=== PATIENT | female | born 1995 | race American Indian/Alaskan Native ===

== ENCOUNTER 2018-12-26 12:02 | Emergency (ER) | payer MEDICAID ==
--- NOTE | 2018-12-26 12:10 | Emergency Department Report ---
Blank Doc - Documentation Documentation: This is a 23-year-old female that presents with sore throat. This initial assessment/diagnostic orders/clinical plan/treatment(s) is/are subject to change based on patient's health status, clinical progression and re- assessment by fellow clinical providers in the ED. Further treatment and workup at subsequent clinical providers discretion. Patient/guardians urged not to elope from the ED as their condition may be serious if not clinically assessed and managed. Initial orders include: 1- Patient sent to [facility] for further evaluation and treatment 2- strep swab
[2018-12-26 12:11] VITALS: BP 106/63
[2018-12-26] MEDS ORDERED: MOTRIN PO ONE (12:38)
[2018-12-26] MEDS ORDERED: BICILLIN L-A IM ONE (12:48)
--- NOTE | 2018-12-26 13:36 | Emergency Department Report ---
ED ENT HPI - General Chief complaint: Sore Throat Stated complaint: SORE THROAT/PAIN Time Seen by Provider: 12/26/18 12:09 Source: patient Mode of arrival: Ambulatory Limitations: No Limitations - History of Present Illness Initial comments: 23-year-old female presents to the Hospital complaining of sore throat 3 days. No fever reported. Also associated frontal headache and earache. She complains of pain with swallowing but is able to swallow secretions without drooling or respiratory distress. - Related Data Previous Rx's Medication Instructions Recorded Last Taken Type Ibuprofen [Motrin] 800 mg PO Q8HR PRN #15 tablet 02/24/16 Unknown Rx Penicillin Vk [Veetids TAB] 500 mg PO Q8H #30 tablet 02/24/16 Unknown Rx Benzocaine/Mentho [Cepacol X 1 each MM Q2HR PRN #20 gunner 12/26/18 Unknown Rx Strength] Ibuprofen Oral Liqd [Motrin] 800 mg PO TID PRN #20 dose 12/26/18 Unknown Rx Allergies Allergy/AdvReac Type Severity Reaction Status Date / Time No Known Allergies Allergy Unverified 02/24/16 13:10 ED Dental HPI - General Chief complaint: Sore Throat Stated complaint: SORE THROAT/PAIN Time Seen by Provider: 12/26/18 12:09 Source: patient Mode of arrival: Ambulatory Limitations: No Limitations - Related Data Previous Rx's Medication Instructions Recorded Last Taken Type Ibuprofen [Motrin] 800 mg PO Q8HR PRN #15 tablet 02/24/16 Unknown Rx Penicillin Vk [Veetids TAB] 500 mg PO Q8H #30 tablet 02/24/16 Unknown Rx Benzocaine/Mentho [Cepacol X 1 each MM Q2HR PRN #20 gunner 12/26/18 Unknown Rx Strength] Ibuprofen Oral Liqd [Motrin] 800 mg PO TID PRN #20 dose 12/26/18 Unknown Rx Allergies Allergy/AdvReac Type Severity Reaction Status Date / Time No Known Allergies Allergy Unverified 02/24/16 13:10 ED Review of Systems ROS: Stated complaint: SORE THROAT/PAIN Other details as noted in HPI Comment: All other systems reviewed and negative ED Past Medical Hx - Past Medical History Previous Medical History?: No - Surgical History Past Surgical History?: No - Social History Smoking Status: Never Smoker Substance Use Type: Marijuana - Medications Home Medications: Home Medications Medication Instructions Recorded Confirmed Last Taken Type Ibuprofen [Motrin] 800 mg PO Q8HR PRN #15 tablet 02/24/16 Unknown Rx Penicillin Vk [Veetids TAB] 500 mg PO Q8H #30 tablet 02/24/16 Unknown Rx Benzocaine/Mentho [Cepacol X 1 each MM Q2HR PRN #20 gunner 12/26/18 Unknown Rx Strength] Ibuprofen Oral Liqd [Motrin] 800 mg PO TID PRN #20 dose 12/26/18 Unknown Rx ED Physical Exam - General Limitations: No Limitations - Other Other exam information: General: No limitations, patient is alert in no acute distress Head exam: Atraumatic, normocephalic Eyes exam: Normal appearance, pupils equal reactive to light, extraocular movements intact ENT: Moist mucous membrane, bilateral pharyngeal exudates with posterior pharyngeal swelling. No kissing tonsils. Uvula midline. Tender cervical lymphadenopathy left greater than right. Neck exam: Normal inspection, full range of motion, no meningismus nontender Respiratory exam: Clear to auscultation bilateral, no wheezes, rales, crackles Cardiovascular: Normal rate and rhythm, normal heart sounds Abdomen: Soft, nondistended, and nontender, with normal bowel sounds, no rebound, or guarding Extremity: Full range of motion normal inspection no deformity Back: Normal Inspection, full range of motion, no tenderness Neurologic: Alert, oriented x3, cranial nerves intact, no motor or sensory deficit Psychiatric: normal affect, normal mood Skin: Warm, dry, intact ED Course Vital Signs 12/26/18 12:09 Temperature 99.9 F H Pulse Rate 102 H Respiratory 16 Rate Blood Pressure 106/63 O2 Sat by Pulse 95 Oximetry ED Medical Decision Making - Medical Decision Making Patient received Bicillin for strep throat as well as by mouth Motrin. - Differential Diagnosis pharyngitis, strep, viral, sinusitis, seasonal allergies Critical care attestation.: If time is entered above; I have spent that time in minutes in the direct care of this critically ill patient, excluding procedure time. ED Disposition Clinical Impression: Strep pharyngitis Disposition: DC- TO HOME OR SELFCARE Is pt being admited?: No Does the pt Need Aspirin: No Condition: Stable Instructions: Strep Throat (ED) Additional Instructions: Take the medication as prescribed. Follow up with your doctor or the clinic/doctor provided. Return if symptoms worsen as indicated by your discharge instructions. You were given a shot of antibiotic for strep throat which will remain in your body for several days and therefore he did not require any antibiotic prescription. Prescriptions: Benzocaine/Mentho [Cepacol X Strength] 1 each MM Q2HR PRN #20 gunner PRN Reason: Sore Throat Ibuprofen Oral Liqd [Motrin] 800 mg PO TID PRN #20 dose PRN Reason: Pain , Severe (7-10) Referrals: STEWART BLACK MD [Primary Care Provider] - 3-5 Days Time of Disposition: 13:36
== END 2018-12-26 13:42 | disposition home or self-care (01) ==
LOC: ED 12:02
DX: J02.0 Streptococcal pharyngitis (principal)
CPT/HCPCS: 87430; 96372; 99283; J0561

== ENCOUNTER 2019-09-14 12:44 | Emergency (ER) | payer MEDICAID ==
--- NOTE | 2019-09-14 13:01 | Emergency Department Report ---
Blank Doc - Documentation Documentation: 24-year-old female that presents with pelvic pain and vaginal discharge. This initial assessment/diagnostic orders/clinical plan/treatment(s) is/are subject to change based on patient's health status, clinical progression and re- assessment by fellow clinical providers in the ED. Further treatment and workup at subsequent clinical providers discretion. Patient/guardians urged not to elope from the ED as their condition may be serious if not clinically assessed and managed. Initial orders include: 1- Patient sent to [facility] for further evaluation and treatment 2- UA 3- pelvic exam to be done
[2019-09-14 13:04] VITALS: BP 102/54
[2019-09-14 14:38] LABS: Bacteria,Urine 4+ /HPF (Negative); Bilirubin,Urine NEG (Negative); Blood,Urine NEG (Negative); Color,Urine Yellow (Yellow); Protein,Urine <15 mg/dL mg/dL (Negative); Urobilinogen,Urine < 2.0 mg/dL (<2.0)
--- NOTE | 2019-09-14 16:22 | Emergency Department Report ---
ED General Adult HPI - General Chief complaint: Abdominal Pain Stated complaint: CHEST PAIN/BLEEDING Time Seen by Provider: 09/14/19 13:00 Source: patient Mode of arrival: Ambulatory Limitations: No Limitations - History of Present Illness Initial comments: 24-year-old -[place] female patient complains of intermittent lower abdominal pain and intermittent vaginal bleeding with mild odorous vaginal discharge for 2 weeks. She also admits to dysuria, but denies any hematochezia area, nausea/vomiting, or stool changes. She rates her pain as a 3/10 in severity. Patient states she is not concern for STI's. She reports her symptoms are similar to the last time she had BV. Denies any dyspareunia, fever/chills/body aches. -: Sudden - Related Data Previous Rx's Medication Instructions Recorded Last Taken Type Ibuprofen [Motrin] 800 mg PO Q8HR PRN #15 tablet 02/24/16 Unknown Rx Penicillin Vk [Veetids TAB] 500 mg PO Q8H #30 tablet 02/24/16 Unknown Rx Benzocaine/Mentho [Cepacol X 1 each MM Q2HR PRN #20 gunner 12/26/18 Unknown Rx Strength] Ibuprofen Oral Liqd [Motrin] 800 mg PO TID PRN #20 dose 12/26/18 Unknown Rx Sulfamethoxazole/Trimethoprim 1 each PO BID 5 Days #10 tablet 09/14/19 Unknown Rx [Bactrim DS TAB] Allergies Allergy/AdvReac Type Severity Reaction Status Date / Time No Known Allergies Allergy Unverified 02/24/16 13:10 ED Review of Systems ROS: Stated complaint: CHEST PAIN/BLEEDING Other details as noted in HPI Comment: All other systems reviewed and negative Gastrointestinal: as per HPI Genitourinary: as per HPI ED Past Medical Hx - Past Medical History Previous Medical History?: No - Surgical History Past Surgical History?: No - Social History Smoking Status: Never Smoker Substance Use Type: None - Medications Home Medications: Home Medications Medication Instructions Recorded Confirmed Last Taken Type Ibuprofen [Motrin] 800 mg PO Q8HR PRN #15 tablet 02/24/16 Unknown Rx Penicillin Vk [Veetids TAB] 500 mg PO Q8H #30 tablet 02/24/16 Unknown Rx Benzocaine/Mentho [Cepacol X 1 each MM Q2HR PRN #20 gunner 12/26/18 Unknown Rx Strength] Ibuprofen Oral Liqd [Motrin] 800 mg PO TID PRN #20 dose 12/26/18 Unknown Rx Sulfamethoxazole/Trimethoprim 1 each PO BID 5 Days #10 tablet 09/14/19 Unknown Rx [Bactrim DS TAB] ED Physical Exam - General Limitations: No Limitations General appearance: alert, in no apparent distress - Head Head exam: Present: atraumatic, normocephalic - Eye Eye exam: Present: normal appearance - Respiratory Respiratory exam: Present: normal lung sounds bilaterally. Absent: respiratory distress - Cardiovascular Cardiovascular Exam: Present: regular rate, normal rhythm. Absent: systolic murmur, diastolic murmur, rubs, gallop - GI/Abdominal GI/Abdominal exam: Present: soft, normal bowel sounds. Absent: distended, tenderness, guarding, rebound, rigid - Speculum exam: Present: vaginal discharge (malodorous, white/greenish ). Absent: erythema, vaginal bleeding, foreign body Bi-manual exam: Absent: cervical motion tendernes, adnexal tenderness, adnexal mass - Extremities Exam Extremities exam: Present: full ROM - Back Exam Back exam: Present: normal inspection - Neurological Exam Neurological exam: Present: alert, oriented X3 - Psychiatric Psychiatric exam: Present: normal affect, normal mood - Skin Skin exam: Present: warm, dry, intact, normal color. Absent: rash ED Course Vital Signs 09/14/19 13:04 Temperature 98.1 F Pulse Rate 67 Respiratory 16 Rate Blood Pressure 102/54 [Right] O2 Sat by Pulse 98 Oximetry ED Medical Decision Making - Lab Data Lab Results 09/14/19 Range/Units Unknown Urine Color Yellow (Yellow) Urine Turbidity Slightly-cloudy (Clear) Urine pH 6.0 (5.0-7.0) Ur Specific [place] 1.019 (1.003-1.030) Urine Protein <15 mg/dl (Negative) mg/dL Urine Glucose (UA) Neg (Negative) mg/dL Urine Ketones Neg (Negative) mg/dL Urine Blood Neg (Negative) Urine Nitrite Pos (Negative) Urine Bilirubin Neg (Negative) Urine Urobilinogen < 2.0 (<2.0) mg/dL Ur Leukocyte Esterase Neg (Negative) Urine WBC (Auto) 1.0 (0.0-6.0) /HPF Urine RBC (Auto) 2.0 (0.0-6.0) /HPF U Epithel Cells (Auto) 2.0 (0-13.0) /HPF Urine Bacteria (Auto) 4+ (Negative) /HPF - Medical Decision Making 24-year-old -[place] female patient complains of intermittent lower abdominal pain and intermittent vaginal bleeding with mild odorous vaginal discharge for 2 weeks. No CMT on exam. He is positive for nitrates and bacteria. Wet prep is negative for Trichomonas, BV, and yeast. Patient treated empirically for GC/chlamydia. Orals are WNL. Patient is stable for discharge home. Discussed the need for patient's partner to get tested and treated also. Recommend follow-up with her PCP in 3-5 days. Critical care attestation.: If time is entered above; I have spent that time in minutes in the direct care of this critically ill patient, excluding procedure time. ED Disposition Clinical Impression: Vaginal discharge UTI (urinary tract infection) Qualifiers: Urinary tract infection type: acute cystitis Hematuria presence: without hematuria Qualified Code(s): N30.00 - Acute cystitis without hematuria Disposition: TO HOME OR SELFCARE Is pt being admited?: No Condition: Stable Instructions: Urinary Tract Infection in Women (ED), Sexually Transmitted Diseases (ED) Prescriptions: Sulfamethoxazole/Trimethoprim [Bactrim DS TAB] 1 each PO BID 5 Days #10 tablet Referrals: PRIMARY CARE, [Primary Care Provider] - 3-5 Days
[2019-09-14] MEDS ORDERED: AZITHROMYCIN 1 GM ORAL PWDR PACKET PO ONE (17:06)
[2019-09-14] MEDS ORDERED: LIDOCAINE-MPF (1%) 10 MG/1 ML VIAL 5 ML INFILTRATI ONE (17:06)
== END 2019-09-14 17:42 | disposition home or self-care (01) ==
LOC: ED 12:44
DX: N39.0 Urinary tract infection, site not specified (principal)
CPT/HCPCS: 81001; 87076; 87086; 87186; 87210; 87591; 96372; 99284; J0696